=== PATIENT | male | born 1960 | race Two or more races ===

== ENCOUNTER 2024-05-07 20:38 | Inpatient (IN) | payer MEDICARE, OTHER ==
[~2024-05-07] VITALS: Ht 162.6 cm; Wt 68.6 kg
[2024-05-07] MEDS: LABETALOL HCL 5 MG/ML 20 ML VIAL IVP ONE
[2024-05-07] MEDS ORDERED: ATOR40TA71 PO (21:38)
[2024-05-07] MEDS ORDERED: CLON0.2T2 PO (21:38)
[2024-05-07] MEDS ORDERED: LOSA1TAB37 PO (21:38)
[2024-05-07 21:58] LABS: BASOPHILS % (AUTO) 1.2 % (0.0-2.0); EOSINOPHILS % (AUTO) 6.5 % (1.0-6.0); HEMATOCRIT 42.9 % (41-53); HEMOGLOBIN 14.1 g/dL (13.5-17.5); LYMPHOCYTES # (AUTO) 1.1 K/uL (1.0-4.8); LYMPHOCYTES % (AUTO) 15.3 % (22.0-44.0); MEAN CORPUSCULAR HGB CONC 32.9 G/dL (31.0-37.0); MEAN CORPUSCULAR VOLUME 76 fL (80-100); MONOCYTES # (AUTO) 0.6 K/uL (0.1-1.0); MONOCYTES % (AUTO) 7.5 % (2.0-9.0); NEUTROPHILS # (AUTO) 5.2 K/uL (1.8-7.7); NEUTROPHILS % (AUTO) 69.5 % (40.0-70.0); PLATELET COUNT (AUTO) 163 K/uL (150-450); RED BLOOD CELL COUNT(AUTO) 5.65 MIL/uL (4.50-5.90); RED CELL DISTRIBUTION WIDTH 13.7 % (11.5-14.5); WHITE BLOOD COUNT (AUTO) 7.4 K/uL (4.5-11.0)
[2024-05-07] MEDS: LOSARTAN POTASSIUM 50 MG TABLET PO ONE (21:59)
[2024-05-07 22:07] LABS: CALCIUM, TOTAL 9.1 mg/dL (8.8-10.5); CREATININE 1.39 mg/dL (0.60-1.30); POTASSIUM 3.4 mmol/L (3.5-5.1)
[2024-05-07 22:13] LABS: ALBUMIN 3.8 g/dL (3.4-5.0); BILIRUBIN,TOTAL 0.3 mg/dL (0.1-1.0); TOTAL PROTEIN, SERUM 7.4 g/dL (6.4-8.2)
[2024-05-07 22:17] LABS: TROPONIN I-HIGH SENSITIVITY 19 ng/L (<76)
[2024-05-07] MEDS: CloNIDine HCL 0.2 MG TABLET PO ONE (22:21)
[2024-05-07] MEDS: HYDROCHLOROTHIAZIDE 25 MG TABLET PO ONE (22:21)
[2024-05-08] VITALS (7 sets, daily range): BP systolic 147–158; BP diastolic 67–87; PULSE 59–71; RESP 18–21; TEMP 97.6–98.7; O2SAT 96–98
[2024-05-08] MEDS: LABETALOL HCL 5 MG/ML 20 ML VIAL IVP ONE (01:05)
[2024-05-08] MEDS ORDERED: HYDROCODONE/ACETAMINOPHEN 5-325 MG TABLET PO PRN (01:30)
[2024-05-08] MEDS ORDERED: ONDANSETRON HCL 4 MG/2 ML VIAL IVP PRN (01:30)
[2024-05-08] MEDS ORDERED: ZOLPIDEM TARTRATE 5 MG TABLET PO PRN (01:30)
[2024-05-08] MEDS ORDERED: MAGNESIUM HYDROXIDE SUSPENSION 30 ML UDCUP PO PRN (01:30)
[2024-05-08] MEDS ORDERED: BISACODYL 10 MG RECTAL RECTAL SUPPOSITORY PR PRN (01:30)
[2024-05-08] MEDS ORDERED: MORPHINE SULFATE 2 MG/ML SYRINGE IVP PRN (01:30)
[2024-05-08] MEDS ORDERED: ACETAMINOPHEN 325 MG TABLET PO PRN (01:30)
[2024-05-08] MEDS: HydrALAZINE HCL 20 MG/ML VIAL IVP PRN (02:18)
[2024-05-08] MEDS: ASPIRIN 325 MG TABLET PO ONE (04:23)
[2024-05-08 06:48] LABS: CALCIUM, TOTAL 8.8 mg/dL (8.8-10.5); CREATININE 1.44 mg/dL (0.60-1.30); POTASSIUM 3.5 mmol/L (3.5-5.1)
[2024-05-08 07:25] LABS: EOSINOPHILS % (AUTO) 5.8 % (1.0-6.0); HEMATOCRIT 42.6 % (41-53); HEMOGLOBIN 14.1 g/dL (13.5-17.5); LYMPHOCYTES # (AUTO) 1.2 K/uL (1.0-4.8); LYMPHOCYTES % (AUTO) 17.8 % (22.0-44.0); MEAN CORPUSCULAR HEMOGLOBIN 25.2 pg (26.0-34.0); MEAN CORPUSCULAR VOLUME 76 fL (80-100); MONOCYTES # (AUTO) 0.5 K/uL (0.1-1.0); MONOCYTES % (AUTO) 7.8 % (2.0-9.0); NEUTROPHILS # (AUTO) 4.7 K/uL (1.8-7.7); NEUTROPHILS % (AUTO) 67.6 % (40.0-70.0); PLATELET COUNT (AUTO) 162 K/uL (150-450); RED BLOOD CELL COUNT(AUTO) 5.59 MIL/uL (4.50-5.90); RED CELL DISTRIBUTION WIDTH 13.5 % (11.5-14.5)
[2024-05-08] MEDS: ATORVASTATIN CALCIUM 40 MG TABLET PO SCH (09:05)
[2024-05-08] MEDS: HEPARIN SODIUM,PORCINE 5,000 UNITS/ML VIAL SQ SCH (09:05)
[2024-05-08] MEDS: LOSARTAN POTASSIUM 50 MG TABLET PO SCH (09:05)
[2024-05-08] MEDS: HYDROCHLOROTHIAZIDE 25 MG TABLET PO SCH (09:06)
[2024-05-08] MEDS: PANTOPRAZOLE SODIUM 40 MG DR TABLET PO SCH (09:06)
[2024-05-08] MEDS: DOCUSATE SODIUM 100 MG CAPSULE PO SCH (09:11)
[2024-05-08] MEDS: CloNIDine HCL 0.2 MG TABLET PO SCH (11:56)
[2024-05-09 01:00] VITALS: BP 164/80; PULSE 64; RESP 17; TEMP 97.4; O2SAT 98
[2024-05-09 05:00] VITALS: BP 128/96; PULSE 67; RESP 19; TEMP 98.2; O2SAT 96
[2024-05-09 06:47] LABS: BASOPHILS % (AUTO) 0.9 % (0.0-2.0); EOSINOPHILS % (AUTO) 5.8 % (1.0-6.0); HEMATOCRIT 41.7 % (41-53); HEMOGLOBIN 14.1 g/dL (13.5-17.5); LYMPHOCYTES # (AUTO) 1.1 K/uL (1.0-4.8); MEAN CORPUSCULAR HEMOGLOBIN 25.9 pg (26.0-34.0); MEAN CORPUSCULAR HGB CONC 33.9 G/dL (31.0-37.0); MEAN CORPUSCULAR VOLUME 77 fL (80-100); MONOCYTES # (AUTO) 0.8 K/uL (0.1-1.0); MONOCYTES % (AUTO) 8.4 % (2.0-9.0); NEUTROPHILS # (AUTO) 7.4 K/uL (1.8-7.7); NEUTROPHILS % (AUTO) 73.9 % (40.0-70.0); PLATELET COUNT (AUTO) 158 K/uL (150-450); RED BLOOD CELL COUNT(AUTO) 5.45 MIL/uL (4.50-5.90); RED CELL DISTRIBUTION WIDTH 13.6 % (11.5-14.5)
[2024-05-09 07:00] LABS: CALCIUM, TOTAL 8.9 mg/dL (8.8-10.5); CREATININE 2.13 mg/dL (0.60-1.30); POTASSIUM 3.7 mmol/L (3.5-5.1)
[2024-05-09 07:09] LABS: RBC MORPHOLOGY COMMENT ABNORMAL RBC MORPH
[2024-05-09 07:48] VITALS: BP 131/72; PULSE 69; RESP 18; TEMP 98; O2SAT 97
[2024-05-09] MEDS: AmLODIPine BESYLATE 10 MG TABLET PO SCH (09:24)
[2024-05-09 11:11] VITALS: BP 136/79; PULSE 63; RESP 19; TEMP 98.1; O2SAT 98
[2024-05-09 13:32] LABS: TROPONIN I-HIGH SENSITIVITY 17 ng/L (<76)
[2024-05-09] MEDS: ASPIRIN 81 MG CHEWABLE TABLET PO SCH (14:11)
[2024-05-09] MEDS: SODIUM CHLORIDE 0.9% 500 ML IV ONE (14:13)
[2024-05-09 15:15] VITALS: BP 142/76; PULSE 60; RESP 18; TEMP 98; O2SAT 98
[2024-05-09 21:22] VITALS: BP 163/72; PULSE 60; RESP 18; TEMP 98.1; O2SAT 98
[2024-05-10] VITALS: BP 116/60; PULSE 62; RESP 18; TEMP 98.1; O2SAT 97
[2024-05-10 04:33] VITALS: BP 167/69; PULSE 60; RESP 18; TEMP 98.2; O2SAT 99
[2024-05-10 07:08] LABS: BASOPHILS % (AUTO) 0.5 % (0.0-2.0); EOSINOPHILS % (AUTO) 7.3 % (1.0-6.0); HEMATOCRIT 45.8 % (41-53); HEMOGLOBIN 15.2 g/dL (13.5-17.5); LYMPHOCYTES % (AUTO) 11.5 % (22.0-44.0); MEAN CORPUSCULAR HEMOGLOBIN 25.4 pg (26.0-34.0); MEAN CORPUSCULAR HGB CONC 33.2 G/dL (31.0-37.0); MEAN CORPUSCULAR VOLUME 77 fL (80-100); MONOCYTES # (AUTO) 0.6 K/uL (0.1-1.0); MONOCYTES % (AUTO) 6.7 % (2.0-9.0); NEUTROPHILS # (AUTO) 6.3 K/uL (1.8-7.7); PLATELET COUNT (AUTO) 151 K/uL (150-450); RED BLOOD CELL COUNT(AUTO) 5.98 MIL/uL (4.50-5.90); RED CELL DISTRIBUTION WIDTH 13.7 % (11.5-14.5); WHITE BLOOD COUNT (AUTO) 8.6 K/uL (4.5-11.0)
[2024-05-10 07:14] LABS: CALCIUM, TOTAL 8.6 mg/dL (8.8-10.5); CREATININE 1.36 mg/dL (0.60-1.30); POTASSIUM 3.6 mmol/L (3.5-5.1)
[2024-05-10 07:17] VITALS: BP 150/75; PULSE 79; RESP 18; TEMP 98; O2SAT 99
[2024-05-10] MEDS ORDERED: ATORVASTATIN CALCIUM 40 MG TABLET PO SCH (09:00)
[2024-05-10] MEDS: HydrALAZINE HCL 50 MG TABLET PO SCH (11:17)
[2024-05-10] MEDS ORDERED: CLON0.2T2 PO (11:42)
[2024-05-10] MEDS ORDERED: ASPI-1450 PO (11:42)
[2024-05-10] MEDS ORDERED: HYDR50TA37 PO (11:42)
[2024-05-10] MEDS ORDERED: ATOR40TA71 PO (11:42)
[2024-05-10] MEDS ORDERED: AMLO-258 PO (11:42)
[2024-05-10 12:13] VITALS: BP 139/79; PULSE 60; RESP 18; TEMP 97.5; O2SAT 98
== END 2024-05-10 13:30 | disposition home or self-care (01) | DRG 304 ==
LOC: EMS 20:38 → EDH 05-08 00:53 → 5S 05-08 02:35
PROVIDERS: ADMIT Internal Medicine; ATTEND Internal Medicine
DX: I16.0 Hypertensive urgency (principal); G93.41 Metabolic encephalopathy; N17.0 Acute kidney failure with tubular necrosis; I12.9 Hypertensive chronic kidney disease with stage 1 through stage 4 chronic kidney disease, or unspecified chronic kidney disease; E78.5 Hyperlipidemia, unspecified; N18.9 Chronic kidney disease, unspecified; G20.A1 Parkinson's disease without dyskinesia, without mention of fluctuations; E87.6 Hypokalemia; H11.31 Conjunctival hemorrhage, right eye; Z79.82 Long term (current) use of aspirin; Z86.73 Personal history of transient ischemic attack (TIA), and cerebral infarction without residual deficits; Z79.899 Other long term (current) drug therapy
CPT/HCPCS: 70450; 71045; 80048; 80053; 83880; 84484; 85025; 93005; 93306; 97116; 97162; 99285; J0360; J1644; J3490; J7040; 36415-L1; 36415-TC

== ENCOUNTER 2024-06-02 09:24 | Inpatient (IN) | payer MEDICARE, OTHER ==
[~2024-06-02] VITALS: Ht 175.3 cm; Wt 71.5 kg
[~2024-06-02 09:24] MED LIST: AMLO-258 PO; ASPI-1450 PO; ATOR40TA71 PO; CLON0.2T2 PO; HYDR50TA36 PO
[2024-06-02] MEDS ORDERED: AZIT-167 PO (10:42)
[2024-06-02 12:59] LABS: BASOPHILS % (AUTO) 0.3 % (0.0-2.0); EOSINOPHILS % (AUTO) 0.4 % (1.0-6.0); HEMATOCRIT 36.3 % (41-53); HEMOGLOBIN 11.8 g/dL (13.5-17.5); LYMPHOCYTES # (AUTO) 0.1 K/uL (1.0-4.8); LYMPHOCYTES % (AUTO) 0.5 % (22.0-44.0); MEAN CORPUSCULAR HEMOGLOBIN 24.6 pg (26.0-34.0); MEAN CORPUSCULAR HGB CONC 32.5 G/dL (31.0-37.0); MEAN CORPUSCULAR VOLUME 76 fL (80-100); MONOCYTES # (AUTO) 0.7 K/uL (0.1-1.0); MONOCYTES % (AUTO) 3.4 % (2.0-9.0); NEUTROPHILS # (AUTO) 18.3 K/uL (1.8-7.7); PLATELET COUNT (AUTO) 256 K/uL (150-450); RED BLOOD CELL COUNT(AUTO) 4.79 MIL/uL (4.50-5.90); RED CELL DISTRIBUTION WIDTH 14.3 % (11.5-14.5); WHITE BLOOD COUNT (AUTO) 19.1 K/uL (4.5-11.0)
[2024-06-02 13:05] LABS: NEUTROPHILS % (AUTO) 95.4 % (40.0-70.0); RBC MORPHOLOGY COMMENT ABNORMAL RBC MORPH
[2024-06-02 13:37] LABS: CALCIUM, TOTAL 7.7 mg/dL (8.8-10.5); CREATININE 1.55 mg/dL (0.60-1.30)
[2024-06-02 13:49] LABS: TROPONIN I-HIGH SENSITIVITY 156 ng/L (<76)
[2024-06-02 17:12] LABS: APPEARANCE,URINE CLEAR (CLEAR); COLOR,URINE YELLOW (YELLOW); GLUCOSE, URINE (UA) NEGATIVE (NEGATIVE); KETONES,URINE NEGATIVE (NEGATIVE); LEUKOCYTE ESTERASE ,URINE NEGATIVE (NEGATIVE); NITRATE,URINE NEGATIVE (NEGATIVE); OCCULT BLOOD,URINE NEGATIVE (NEGATIVE); PROTEIN,URINE 30-70 mg/dL (NEGATIVE); SPECIFIC GRAVITIY, URINE 1.017 (1.003-1.030)
[2024-06-02 17:21] LABS: BILIRUBIN,URINE SMALL (NEGATIVE)
[2024-06-02] MEDS ORDERED: ONDANSETRON HCL 4 MG/2 ML VIAL IVP PRN (18:30)
[2024-06-02] MEDS ORDERED: BISACODYL 10 MG RECTAL RECTAL SUPPOSITORY PR PRN (18:30)
[2024-06-02] MEDS ORDERED: IPRATROPIUM BROMIDE 0.5 MG/2.5 ML NEB SOLUTION NEB PRN (18:30)
[2024-06-02] MEDS ORDERED: HYDROCODONE/ACETAMINOPHEN 5-325 MG TABLET PO PRN (18:30)
[2024-06-02] MEDS ORDERED: MORPHINE SULFATE 2 MG/ML SYRINGE IVP PRN (18:30)
[2024-06-02] MEDS ORDERED: ALBUTEROL SULFATE 2.5 MG/0.5 ML NEB SOLUTION NEB PRN (18:30)
[2024-06-02] MEDS ORDERED: ZOLPIDEM TARTRATE 5 MG TABLET PO PRN (18:30)
[2024-06-02] MEDS: HydrALAZINE HCL 50 MG TABLET PO SCH (20:50)
[2024-06-02] MEDS: CloNIDine HCL 0.2 MG TABLET PO SCH (20:51)
[2024-06-02 21:23] VITALS: BP 138/70; PULSE 70; RESP 18; TEMP 98.1; O2SAT 97
[2024-06-03] MEDS: HEPARIN SODIUM,PORCINE 5,000 UNITS/ML VIAL SQ SCH (00:12)
[2024-06-03 04:44] VITALS: BP 137/72; PULSE 89; RESP 18; TEMP 101; O2SAT 95
[2024-06-03] MEDS: ACETAMINOPHEN 325 MG TABLET PO PRN (04:52)
[2024-06-03 08:30] VITALS: BP 142/80; PULSE 80; RESP 18; TEMP 99.8; O2SAT 96
[2024-06-03 08:39] LABS: BASOPHILS % (AUTO) 0.5 % (0.0-2.0); EOSINOPHILS % (AUTO) 3.2 % (1.0-6.0); HEMATOCRIT 36.1 % (41-53); HEMOGLOBIN 11.7 g/dL (13.5-17.5); LYMPHOCYTES # (AUTO) 0.5 K/uL (1.0-4.8); LYMPHOCYTES % (AUTO) 4.2 % (22.0-44.0); MEAN CORPUSCULAR HEMOGLOBIN 24.4 pg (26.0-34.0); MEAN CORPUSCULAR HGB CONC 32.3 G/dL (31.0-37.0); MEAN CORPUSCULAR VOLUME 76 fL (80-100); MONOCYTES # (AUTO) 0.5 K/uL (0.1-1.0); MONOCYTES % (AUTO) 4.6 % (2.0-9.0); NEUTROPHILS # (AUTO) 9.6 K/uL (1.8-7.7); PLATELET COUNT (AUTO) 263 K/uL (150-450); RED BLOOD CELL COUNT(AUTO) 4.78 MIL/uL (4.50-5.90); RED CELL DISTRIBUTION WIDTH 14.4 % (11.5-14.5)
[2024-06-03] MEDS: AZITHROMYCIN 500 MG TABLET PO SCH (08:49)
[2024-06-03] MEDS: AmLODIPine BESYLATE 10 MG TABLET PO SCH (08:50)
[2024-06-03] MEDS: ATORVASTATIN CALCIUM 40 MG TABLET PO SCH (08:50)
[2024-06-03] MEDS: ASPIRIN 81 MG CHEWABLE TABLET PO SCH (08:50)
[2024-06-03] MEDS: PANTOPRAZOLE SODIUM 40 MG DR TABLET PO SCH (08:50)
[2024-06-03 08:57] LABS: ALBUMIN 2.6 g/dL (3.4-5.0); BILIRUBIN,TOTAL 1.2 mg/dL (0.1-1.0); CREATININE 1.21 mg/dL (0.60-1.30); POTASSIUM 3.8 mmol/L (3.5-5.1); TOTAL PROTEIN, SERUM 6.1 g/dL (6.4-8.2)
[2024-06-03 09:22] LABS: NEUTROPHILS % (AUTO) 87.5 % (40.0-70.0); RBC MORPHOLOGY COMMENT ABNORMAL RBC MORPH
[2024-06-03 11:22] VITALS: BP 114/61; PULSE 78; RESP 18; TEMP 99.1; O2SAT 97
[2024-06-03 16:23] VITALS: BP 132/75; PULSE 74; RESP 18; TEMP 98.5; O2SAT 96
[2024-06-03 20:16] VITALS: BP 126/70; PULSE 81; RESP 18; TEMP 98.6; O2SAT 97
[2024-06-03 23:54] VITALS: BP 134/82; PULSE 102; RESP 14; TEMP 99; O2SAT 96
[2024-06-04 03:59] VITALS: BP 135/84; PULSE 96; RESP 16; TEMP 100.9; O2SAT 93
[2024-06-04 06:27] LABS: HEMATOCRIT 33.1 % (41-53); HEMOGLOBIN 10.9 g/dL (13.5-17.5); MEAN CORPUSCULAR HEMOGLOBIN 24.7 pg (26.0-34.0); MEAN CORPUSCULAR HGB CONC 32.9 G/dL (31.0-37.0); MEAN CORPUSCULAR VOLUME 75 fL (80-100); PLATELET COUNT (AUTO) 272 K/uL (150-450); RED BLOOD CELL COUNT(AUTO) 4.41 MIL/uL (4.50-5.90); RED CELL DISTRIBUTION WIDTH 14.3 % (11.5-14.5); WHITE BLOOD COUNT (AUTO) 12.6 K/uL (4.5-11.0)
[2024-06-04 06:35] LABS: ANION GAP 9 mmol/L (8-16); CALCIUM, TOTAL 7.9 mg/dL (8.8-10.5); CARBON DIOXIDE 23 mmol/L (22-29); CHLORIDE 100 mmol/L (98-107); CREATININE 1.18 mg/dL (0.60-1.30); GLOMERULAR FILTR. RATE CALC > 60 mL/min (>60); GLUCOSE,RANDOM 99 mg/dL (70-110); POTASSIUM 3.9 mmol/L (3.5-5.1); SODIUM SERUM 132 mmol/L (136-145); UREA NITROGEN, BLOOD 19 mg/dL (7-18)
[2024-06-04 08:02] LABS: COVID AG,FIA SOURCE NASAL SWAB
[2024-06-04 08:29] LABS: SARS-COV2 (COVID) ANTIGEN,FIA Negative (Negative)
[2024-06-04 08:30] LABS: INFLUENZA TYPE A NEGATIVE FOR TYPE A (NEGATIVE); INFLUENZA TYPE B NEGATIVE FOR TYPE B (NEGATIVE)
[2024-06-04 08:36] VITALS: BP 136/74; PULSE 69; RESP 18; TEMP 98; O2SAT 99
[2024-06-04 10:05] LABS: RBC MORPHOLOGY COMMENT ABNORMAL RBC MORPH
[2024-06-04 10:46] VITALS: BP 140/79; PULSE 71; RESP 19; TEMP 98.8; O2SAT 99
[2024-06-04 15:58] VITALS: BP 133/77; PULSE 73; RESP 18; TEMP 98; O2SAT 97
[2024-06-04 17:41] LABS: ALCOHOL, URINE DRUG SCREEN NEGATIVE (NEGATIVE); AMPHET/METH SCREEN,URINE NEGATIVE (NEGATIVE); BARBITURATE SCREEN, URINE NEGATIVE (NEGATIVE); BENZODIAZEPINES SCREEN,URINE NEGATIVE (NEGATIVE); CANNABINOID SCREEN,URINE POSITIVE (NEGATIVE); COCAINE SCREEN,URINE NEGATIVE (NEGATIVE); METHADONE SCREEN, URINE NEGATIVE (NEGATIVE); OPIATE SCREEN,URINE NEGATIVE (NEGATIVE); PHENCYCLIDINE SCREEN,URINE NEGATIVE (NEGATIVE)
[2024-06-04 18:10] LABS: INFLUENZA A-RTPCR,COMBO NEGATIVE (NEGATIVE); INFLUENZA B-RTPCR,COMBO NEGATIVE (NEGATIVE); RESPIRATORY SYNCYTIAL VRS-PCR NEGATIVE (NEGATIVE); SARS COVID19 RTPCR, COMBO NEGATIVE (NEGATIVE)
[2024-06-04 20:47] VITALS: BP 131/71; PULSE 74; RESP 18; TEMP 99.3; TEMP 99.7; O2SAT 94
[2024-06-05 04:56] VITALS: BP 139/79; PULSE 75; RESP 18; TEMP 98.3; O2SAT 94
[2024-06-05 06:06] LABS: HEPATITIS A ANTIBODY IGM Negative (Negative); HEPATITIS B CORE IGM Negative (Negative); HEPATITIS C AB (EIA) Non Reactive (Non Reactive)
[2024-06-05 07:15] LABS: BASOPHILS % (AUTO) 1.4 % (0.0-2.0); EOSINOPHILS % (AUTO) 5.1 % (1.0-6.0); HEMATOCRIT 37.2 % (41-53); HEMOGLOBIN 12.1 g/dL (13.5-17.5); LYMPHOCYTES # (AUTO) 0.6 K/uL (1.0-4.8); LYMPHOCYTES % (AUTO) 5.2 % (22.0-44.0); MEAN CORPUSCULAR HEMOGLOBIN 24.5 pg (26.0-34.0); MEAN CORPUSCULAR HGB CONC 32.5 G/dL (31.0-37.0); MEAN CORPUSCULAR VOLUME 76 fL (80-100); MONOCYTES # (AUTO) 0.6 K/uL (0.1-1.0); MONOCYTES % (AUTO) 5.5 % (2.0-9.0); NEUTROPHILS # (AUTO) 9.3 K/uL (1.8-7.7); NEUTROPHILS % (AUTO) 82.8 % (40.0-70.0); PLATELET COUNT (AUTO) 276 K/uL (150-450); RED BLOOD CELL COUNT(AUTO) 4.93 MIL/uL (4.50-5.90); RED CELL DISTRIBUTION WIDTH 14.2 % (11.5-14.5); WHITE BLOOD COUNT (AUTO) 11.2 K/uL (4.5-11.0)
[2024-06-05 07:23] LABS: ALANINE AMINOTRANSFERASE 163 U/L (12-78); ALBUMIN 2.6 g/dL (3.4-5.0); ALKALINE PHOSPHATASE 272 U/L (46-116); ANION GAP 8 mmol/L (8-16); ASPARTATE AMINOTRANSFERASE 53 U/L (15-37); BILIRUBIN,TOTAL 0.9 mg/dL (0.1-1.0); CALCIUM, TOTAL 8.2 mg/dL (8.8-10.5); CARBON DIOXIDE 25 mmol/L (22-29); CHLORIDE 101 mmol/L (98-107); CREATININE 1.16 mg/dL (0.60-1.30); GLOMERULAR FILTR. RATE CALC > 60 mL/min (>60); GLUCOSE,RANDOM 102 mg/dL (70-110); POTASSIUM 3.9 mmol/L (3.5-5.1); SODIUM SERUM 134 mmol/L (136-145); TOTAL PROTEIN, SERUM 6.3 g/dL (6.4-8.2); UREA NITROGEN, BLOOD 18 mg/dL (7-18)
[2024-06-05 07:33] VITALS: BP 143/66; PULSE 81; RESP 20; TEMP 98.7; O2SAT 98
[2024-06-05 08:43] LABS: RBC MORPHOLOGY COMMENT ABNORMAL RBC MORPH
[2024-06-05 15:28] VITALS: BP 129/71; PULSE 73; RESP 19; TEMP 98.2; O2SAT 95
[2024-06-05 20:09] VITALS: BP 125/60; PULSE 69; RESP 18; TEMP 98.2; O2SAT 95
[2024-06-06 05:00] VITALS: BP 150/78; PULSE 80; RESP 19; TEMP 98.9; O2SAT 97
[2024-06-06 07:16] LABS: BASOPHILS % (AUTO) 0.9 % (0.0-2.0); HEMATOCRIT 36.5 % (41-53); HEMOGLOBIN 12.2 g/dL (13.5-17.5); LYMPHOCYTES # (AUTO) 0.5 K/uL (1.0-4.8); MEAN CORPUSCULAR HEMOGLOBIN 25.2 pg (26.0-34.0); MEAN CORPUSCULAR HGB CONC 33.3 G/dL (31.0-37.0); MEAN CORPUSCULAR VOLUME 76 fL (80-100); MONOCYTES # (AUTO) 0.6 K/uL (0.1-1.0); MONOCYTES % (AUTO) 5.7 % (2.0-9.0); NEUTROPHILS # (AUTO) 8.9 K/uL (1.8-7.7); NEUTROPHILS % (AUTO) 84.4 % (40.0-70.0); PLATELET COUNT (AUTO) 265 K/uL (150-450); RED BLOOD CELL COUNT(AUTO) 4.83 MIL/uL (4.50-5.90); RED CELL DISTRIBUTION WIDTH 14.4 % (11.5-14.5); WHITE BLOOD COUNT (AUTO) 10.5 K/uL (4.5-11.0)
[2024-06-06 07:22] LABS: RBC MORPHOLOGY COMMENT ABNORMAL RBC MORPH
[2024-06-06 08:04] VITALS: BP 140/82; PULSE 79; RESP 18; TEMP 98.9; O2SAT 98
[2024-06-06] MEDS ORDERED: PANT-31 PO (11:05)
[2024-06-06] MEDS ORDERED: ALBU2.5V39 NEB (11:06)
[2024-06-06] MEDS ORDERED: BISA-151 PO (11:06)
[2024-06-06] MEDS ORDERED: ZOLP-280 PO (11:07)
[2024-06-06] MEDS ORDERED: IPRA0.2S49 NEB (11:07)
[2024-06-06] MEDS ORDERED: MAGN-169 PO (11:07)
[2024-06-06] MEDS ORDERED: AMOX-457 PO (11:08)
[2024-06-06] MEDS: MAGNESIUM HYDROXIDE SUSPENSION 30 ML UDCUP PO PRN (11:51)
== END 2024-06-06 16:15 | DRG 682 ==
LOC: EMS 09:39 → EDH 14:08 → CMPBEDREQ 14:36 → 5S 21:06 → 6S 06-04 21:33
PROVIDERS: ADMIT Hospitalist; ATTEND Hospitalist
DX: N17.0 Acute kidney failure with tubular necrosis (principal); G93.41 Metabolic encephalopathy; J15.69 Pneumonia due to other Gram-negative bacteria; G20.A1 Parkinson's disease without dyskinesia, without mention of fluctuations; D72.829 Elevated white blood cell count, unspecified; E78.5 Hyperlipidemia, unspecified; R74.01 Elevation of levels of liver transaminase levels; I10 Essential (primary) hypertension; Z20.822 Contact with and (suspected) exposure to COVID-19; E66.9 Obesity, unspecified; Z87.01 Personal history of pneumonia (recurrent); K57.30 Diverticulosis of large intestine without perforation or abscess without bleeding; Z79.82 Long term (current) use of aspirin; Z86.73 Personal history of transient ischemic attack (TIA), and cerebral infarction without residual deficits; Z79.899 Other long term (current) drug therapy; R09.81 Nasal congestion; Z68.23 Body mass index [BMI] 23.0-23.9, adult
CPT/HCPCS: 0241U; 70450; 70486; 71045; 71250; 74176; 76700; 80048; 80053; 80074; 80307; 81003; 82550; 83880; 84145; 84484; 85025; 85379; 85610; 85730; 87040; 87081; 87804; 93005; 93306; 97112; 97116; 97163; 97166; 97530; 97535; 99285; J1644; 36415-L1; 36415-TC